=== PATIENT | male | born 1980 | race Caucasian/White ===

== ENCOUNTER 2017-09-09 23:57 | Emergency (ER) | payer MEDICAID ==
[~2017-09-09] VITALS: Ht 160 cm; Wt 78.5 kg
[2017-09-10 04:11] LABS: CLARITY URINE CLEAR (CLEAR); COLOR URINE YELLOW (YELLOW); KETONES URINE TRACE (NEGATIVE); LEUKOCYTE ESTERASE URINE NEGATIVE (NEGATIVE); NITRITE URINE NEGATIVE (NEGATIVE); OCCULT BLOOD URINE NEGATIVE (NEGATIVE); PH URINE 5.5 (4.5-8.0); PROTEIN URINE 1+ (NEGATIVE); SPECIFIC GRAVITY URINE 1.025 (1.005-1.030)
[2017-09-10] MEDS ORDERED: CEPHALEXIN 500MG CAPSULE PO ONE (06:00)
[2017-09-10 06:47] VITALS: BP 132/85
== END 2017-09-10 06:48 | disposition home or self-care (01) ==
LOC: ER 09-10 01:05
DX: N30.90 Cystitis, unspecified without hematuria (principal); N43.3 Hydrocele, unspecified; N20.0 Calculus of kidney; F17.210 Nicotine dependence, cigarettes, uncomplicated; F12.90 Cannabis use, unspecified, uncomplicated
CPT/HCPCS: 74176; 81003; 87086; 99285

== ENCOUNTER 2018-01-12 14:07 | Emergency (ER) | payer MEDICAID ==
[~2018-01-12] VITALS: Ht 177.8 cm; Wt 82.0 kg
[2018-01-12] MEDS ORDERED: TRAZ-212 PO (14:15)
[2018-01-12] MEDS ORDERED: LAMO25TA3 PO (14:15)
[2018-01-12] MEDS ORDERED: SODIUM CHLORIDE 0.9% 1,000 ML IV ONE (15:11)
[2018-01-12 15:53] LABS: BASOPHILS % 0.5 % (0.0-2.0); EOSINOPHILS % 1.2 % (0.0-5.0); HEMATOCRIT. 44.4 % (42.0-52.0); HEMOGLOBIN. 15.4 g/dL (14.0-18.0); LYMPHOCYTES % 17.7 % (20.0-50.0); MEAN CORPUSCULAR HEMOGLOBIN 29.3 pg (28.0-32.0); MEAN CORPUSCULAR VOLUME 84.6 fL (80.0-94.0); MEAN PLATELET VOLUME 10.1 fl (7.4-10.4); MONOCYTES % 5.3 % (2.0-8.0); NEUTROPHILS % 75.3 % (40.0-76.0); PLATELET 169 x1000/uL (130-400); RED BLOOD CELL COUNT 5.25 mill/uL (4.7-6.1); RED CELL DISTRIBUTION WIDTH 13.4 % (11.6-14.6)
[2018-01-12 15:59] LABS: CHLORIDE 105 mEq/L (98-107)
[2018-01-12] MEDS ORDERED: SODIUM CHLORIDE 0.9% 1,000 ML IV NR (17:20)
[2018-01-12 18:45] VITALS: BP 110/61
== END 2018-01-12 18:50 | disposition home or self-care (01) ==
LOC: ER 14:33
DX: R55 Syncope and collapse (principal); R07.89 Other chest pain; R00.2 Palpitations; R11.0 Nausea; F12.10 Cannabis abuse, uncomplicated; F31.9 Bipolar disorder, unspecified
CPT/HCPCS: 36415; 71045; 80053; 84484; 85025; 85379; 96360; 96361; 99285; J7030

== ENCOUNTER 2020-09-17 14:29 | Emergency (ER) | payer MEDICAID ==
[~2020-09-17] VITALS: Ht 160 cm; Wt 90.0 kg
[~2020-09-17 14:29] MED LIST: LAMO25TA3 PO; TRAZ-251 PO
[2020-09-17] MEDS ORDERED: IBUPROFEN 600MG TABLET PO ONE (16:00)
[2020-09-17 16:12] LABS: CLARITY URINE CLEAR (CLEAR); COLOR URINE YELLOW (YELLOW); KETONES URINE NEGATIVE (NEGATIVE); LEUKOCYTE ESTERASE URINE NEGATIVE (NEGATIVE); NITRITE URINE NEGATIVE (NEGATIVE); OCCULT BLOOD URINE NEGATIVE (NEGATIVE); PH URINE 8.5 (4.5-8.0); PROTEIN URINE NEGATIVE (NEGATIVE); SPECIFIC GRAVITY URINE 1.018 (1.005-1.030); UROBILINOGEN URINE 0.2 E.U./dL (0.2-1.0)
[2020-09-17] MEDS ORDERED: AZITHROMYCIN 500 MG TABLET PO NR (17:00)
[2020-09-17] MEDS ORDERED: CEFTRIAXONE SODIUM 500 MG/VIAL IM NR (17:00)
[2020-09-17 17:17] VITALS: BP 120/78
[2020-09-22 04:07] LABS: NEISSERIA GONORRHOEAE NAA Negative (Negative)
== END 2020-09-17 17:17 | disposition home or self-care (01) ==
LOC: ER 14:29
DX: R30.0 Dysuria (principal); R39.15 Urgency of urination; Z20.2 Contact with and (suspected) exposure to infections with a predominantly sexual mode of transmission; M79.675 Pain in left toe(s); G40.909 Epilepsy, unspecified, not intractable, without status epilepticus; Z87.440 Personal history of urinary (tract) infections; Z86.59 Personal history of other mental and behavioral disorders; F12.90 Cannabis use, unspecified, uncomplicated
CPT/HCPCS: 73660; 81003; 87491; 87591; 96372; 99284; J0696

== ENCOUNTER 2022-11-08 16:16 | Emergency (ER) | payer MEDICAID ==
[~2022-11-08] VITALS: Ht 160 cm; Wt 82.0 kg
[2022-11-08 16:29] VITALS: O2SAT 100
[2022-11-08 18:33] LABS: BASOPHILS % 0.5 % (0.0-2.0); EOSINOPHILS % 1.4 % (0.0-5.0); HEMATOCRIT. 44.9 % (42.0-52.0); HEMOGLOBIN. 15.3 g/dL (14.0-18.0); MEAN CORPUSCULAR VOLUME 85.2 fL (80.0-94.0); MEAN PLATELET VOLUME 9.6 fl (7.4-10.4); MONOCYTES % 5.7 % (2.0-8.0); NEUTROPHILS % 70.4 % (40.0-76.0); PLATELET 207 x1000/uL (130-400); RED BLOOD CELL COUNT 5.27 mill/uL (4.7-6.1)
[2022-11-08 18:49] LABS: CHLORIDE 108 mEq/L (98-107)
[2022-11-08] MEDS ORDERED: TOPUD MT (23:41)
[2022-11-08] MEDS ORDERED: IBUP-1525 MT (23:41)
[2022-11-09 00:43] VITALS: BP 131/91; PULSE 94; RESP 15; TEMP 98.6
== END 2022-11-09 00:45 | disposition home or self-care (01) ==
LOC: ER 16:16
DX: R07.89 Other chest pain (principal); F12.10 Cannabis abuse, uncomplicated; Z86.59 Personal history of other mental and behavioral disorders
CPT/HCPCS: 36415; 71045; 80053; 83880; 84484; 85025; 93005; 99285

== ENCOUNTER 2024-05-10 09:43 | Emergency (ER) | payer MEDICAID ==
[~2024-05-10] VITALS: Ht 172.7 cm; Wt 95.0 kg
[~2024-05-10 09:43] MED LIST changes: +IBUP-1525 MT; +TOPUD MT
[2024-05-10 09:51] VITALS: BP 154/89; TEMP 97.5
[2024-05-10] MEDS: ALBUTEROL (0.083%) 2.5MG/3ML NEB HHN ONE (11:30)
[2024-05-10] MEDS: PREDNISONE 20MG TABLET PO ONE (11:57)
[2024-05-10 12:29] VITALS: PULSE 95; RESP 21; O2SAT 92
[2024-05-10] MEDS ORDERED: BENZ200C52 MT (12:41)
[2024-05-10] MEDS ORDERED: DOXY100C5 MT (12:41)
[2024-05-10] MEDS ORDERED: AMOX1TAB16 MT (12:41)
== END 2024-05-10 13:01 | disposition home or self-care (01) ==
LOC: ER 09:43
DX: J18.9 Pneumonia, unspecified organism (principal); F41.9 Anxiety disorder, unspecified; F31.9 Bipolar disorder, unspecified; F12.10 Cannabis abuse, uncomplicated; Z98.890 Other specified postprocedural states; Z79.899 Other long term (current) drug therapy; Z86.59 Personal history of other mental and behavioral disorders
CPT/HCPCS: 71045; 94640; 99283; J7512; Z7610

== ENCOUNTER 2024-05-24 08:41 | Emergency (ER) | payer MEDICAID ==
[~2024-05-24] VITALS: Ht 160 cm; Wt 90.7 kg
[~2024-05-24 08:41] MED LIST changes: +AMOX1TAB16 MT; +BENZ200C52 MT; +DOXY100C5 MT
[2024-05-24 08:44] VITALS: PULSE 120; O2SAT 96
[2024-05-24 08:54] VITALS: BP 161/89; RESP 16; TEMP 98.7; O2SAT 100
[2024-05-24 09:28] LABS: BASOPHILS % 1.2 % (0.0-2.0); EOSINOPHILS % 2.2 % (0.0-5.0); HEMATOCRIT. 47.2 % (42.0-52.0); HEMOGLOBIN. 15.8 g/dL (14.0-18.0); LYMPHOCYTES % 37.2 % (20.0-50.0); MEAN CORPUSCULAR HEMOGLOBIN 28.7 pg (28.0-32.0); MEAN CORPUSCULAR HGB CONC 33.5 g/dL (31.0-37.0); MEAN CORPUSCULAR VOLUME 85.7 fL (80.0-94.0); MEAN PLATELET VOLUME 9.9 fl (7.4-10.4); NEUTROPHILS % 52.4 % (40.0-76.0); PLATELET 238 x1000/uL (130-400); RED BLOOD CELL COUNT 5.51 mill/uL (4.7-6.1); RED CELL DISTRIBUTION WIDTH 13.7 % (11.6-14.6); WHITE BLOOD COUNT 11.1 x1000/uL (4.5-11.0)
[2024-05-24 09:32] LABS: CHLORIDE 108 mEq/L (98-107); SODIUM 141 mEq/L (136-145)
[2024-05-24 09:33] LABS: CARBON DIOXIDE 25 mEq/L (21-32)
[2024-05-24 09:34] LABS: CALCIUM 9.5 mg/dL (8.7-10.4)
[2024-05-24 09:38] LABS: CREATININE 0.9 mg/dL (0.6-1.3); GLUCOSE 115 mg/dL (70-105); UREA NITROGEN BLOOD 13 mg/dL (9-23)
[2024-05-24 09:41] LABS: TROPONIN I HIGH SENSITIVITY 31 ng/L (3.0-53)
[2024-05-24] MEDS ORDERED: LEVO750T68 MT (11:02)
[2024-05-24] MEDS: CEFTRIAXONE SODIUM 1G VIAL IM NR (11:21)
== END 2024-05-24 11:33 | disposition home or self-care (01) ==
LOC: ER 08:41
DX: J18.9 Pneumonia, unspecified organism (principal); F12.10 Cannabis abuse, uncomplicated; F41.9 Anxiety disorder, unspecified; F31.9 Bipolar disorder, unspecified; Z98.890 Other specified postprocedural states; Z79.899 Other long term (current) drug therapy; Z86.59 Personal history of other mental and behavioral disorders
CPT/HCPCS: 99285; 71250; 71045; 80048; 85025; 84484; 36415; 93005; 96372; J0696